=== PATIENT | female | born 1975 | race Caucasian/White ===

== ENCOUNTER 2017-05-10 23:12 | Emergency (ER) | payer BC ==
[2017-05-10 23:20] VITALS: BMI 32.5
[2017-05-10] MEDS ORDERED: ASPIRIN ONE (23:25)
[2017-05-10] MEDS ORDERED: NITROSTAT SL PRN (23:25)
[2017-05-10] MEDS ORDERED: ASPIRIN PO ONE (23:26)
--- NOTE | 2017-05-10 23:34 | DR.GENAD ---
HPI - PCP Primary Care Physician: ASHWIN - HPI Comment HPI Comment: PATIENT DENIES COUGH, CONGESTION, FEVER OR DYSURIA. CHOLESTEROL DONE RECENTLY AND WAS NORMAL. CHEST PAIN WAS GETTING WORSE WHEN SHE CAME TO ED. - Complaint/Symptoms Chief Complaint Doctors Comments: CHEST PAIN THAT STARTED TONIGHT. BP WAS ELEVATED, PATIENT TOOK CLONIDINE. Chief Complaint:: PT STATES" MY BLOOD PRESSURE WAS UP AND I TOOK A CLONIDINE AND THEN LATER I FELT LIKE MY CHEST WAS BURNING TO BAD SO I CAME HERE" - Nurses notes reviewed Nurses Notes Review: Yes - Source History Provided: Patient - Mode of Arrival Mode of Arrival: Ambulatory - Timing Onset of Chief Complaint: 05/10/17 Came on: Suddenly - Duration Duration: Constant Duration: Hours - Severity Severity: Moderate PMH - PMH Past Medical History: Yes Past Medical History: Depression, Hypertension Past Surgical History: Yes Surgical History: Cholecystectomy - Family History History of Family Medical Conditions: Yes Family Medical History: Cancer, Hypertension - Social History Does any household member use tobacco: No Alcohol Use: None Do you use any recreational Drugs:: No Lives With: Family Lives Where: Home - infectious screening In the last 2 months have you had wt loss of >10#?: NO Have you had fever, night sweats or hemotysis?: No Have you traveled outside the country in the last 6 months?: No Isolation: Standard ROS - Review of Systems Constitutional: Weakness, Fatigue. negative: Chills, Fever Eyes: No Symptoms Reported. negative: Eye Pain, Discharge ENTM: No Symptoms Reported. negative: Ear Pain, Nose Discharge, Nose Congestion , Throat Pain Respiratoy: Short of Breath. negative: Productive Cough, Non-Productive Cough, Wheezing, Hemoptysis Cardiovascular: Chest Pain (TIGHTNESS). negative: Edema Gastrointestinal/Abdominal: No Symptoms Reported. negative: Abdominal Pain, Constipation, Diarrhea, Nausea, Vomiting Genitourinary: No Symptoms Reported. negative: Dysuria, Frequency, Hematuria Neurological: Headache, Weakness, Dizziness Musculoskeletal: Muscle Pain Integumentary: No Symptoms Reported Hematologic/Lymphatic: No Symptoms Reported Endocrine: No Symptoms Reported All Other Systems: Reviewed and Negative PE - Vital Signs Vitals: Temperature 97.5 F Pulse Rate [Right Brachial] 61 Pulse Rate 66 Respiratory Rate 16 Blood Pressure [Left Arm] 138/71 Blood Pressure 173/110 O2 Sat by Pulse Oximetry 100 - General Limitations: No Limitations General Appearance: Alert - Head Head Exam: Normal Inspection - Eyes Eye exam: Normal Appearance - ENT ENT Exam: Normal External Ear Exam External Ear Exam: Normal External Inspection TM/Canal Exam: Bilateral Normal Nose Exam: Normal Nose Exam Mouth Exam: Normal Inspection Throat Exam: Normal Inspection - Neck Neck Exam: Trachea Midline - Chest Chest Inspection: Symmetric Chest Wall Rise - Respiratory Respiratory Exam: Normal Lung Sounds Bilat Respiratory Exam: Bilateral Clear to Auscultation - Cardiovascular Cardiovascular Exam: Regular Rate, Normal Rhythm, Normal Heart Sounds - Abdominal Exam Abdominal Exam: Normal Bowel Sounds, Soft. negative: Tenderness - Extremities Extremities Exam: Normal Inspection - Back Back Exam: Normal Inspection - Neurologic Neurological Exam: Alert, Oriented X3 - Psychiatric Psychiatric Exam: Normal Affect, Normal Mood - Skin Skin Exam: Normal Color [facility] - Additional Information Additional Information Obtained From: Old Records - Differential Diagnosis Differential Diagnosis: CHEST PAIN, CHEST TIGHTNESS, [place], PNEUMONIA, PUD, Course - Treatment Treatment: SEE ORDERS. ASA, NTG AND PEPCID IN ED. PAIN IMPROVED. - Education/Counseling Education/Counseling: Patient, Family, Education Educated On: Treatment, Diagnosis, Needs for Follow Up ROR - Labs Reviewed Laboratory Results Reviewed?: Yes Result Diagrams: 05/10/17 23:30 05/10/17 23:30 Laboratory: WBC 10.8 X10^3/uL (3.6-10.0) H 05/10/17 23:30 RBC 4.60 X10^6/uL (3.5-5.4) 05/10/17 23:30 Hgb 14.0 g/dL (12.0-16.0) 05/10/17 23:30 Hct 39.7 % (36.0-47.0) 05/10/17 23:30 MCV 86.3 fL (80.0-100.0) 05/10/17 23:30 MCH 30.5 pg (27.0-34.0) 05/10/17 23:30 MCHC 35.3 g/dL (33.0-35.0) H 05/10/17 23:30 RDW 13.4 % (11.6-16.5) 05/10/17 23:30 Plt Count 279 X10^3/uL (150.0-450.0) 05/10/17 23:30 MPV 8.9 fL (7.4-11.0) 05/10/17 23: Neut % 62.1 % (42.0-75.0) 05/10/17: Lymph % 29.8 % (21.0-51.0) 05/10/17 23: [place] % 5.7 % (0.0-13.0) 05/10/17 23: Eos % 1.5 % (0.9-2.9) 05/10/17 23: Baso % 0.9 % (0.2-1.0) 05/10/17 23: Neut # 6.7 x10^3/uL (2.2-4.8) H 05/10/17: Lymph # 3.2 X10^3/uL (1.3-2.9) H 05/10/17 23:30 [place] # 0.6 x10^3/uL (0.3-0.8) 05/10/17 23: Eos # 0.2 x10^3/uL (0.0-0.2) 05/10/17: Baso # 0.1 X10^3/uL (0.0-0.1) 05/10/17 23: Absolute Nucleated RBC 0.0 /100WBC 05/10/17 23:30 D-Dimer 126 ng/mL (0-400) 05/10/17 23:30 Sodium 138 mmol/L (136-145) 05/10/17 23:30 Corrected Sodium 139 mmol/L (136-145) 05/10/17 23:30 Potassium 3.5 mmol/L (3.5-5.1) 05/10/17 23: Chloride 103 mmol/L (98-107) 05/10/17 23:30 Carbon Dioxide 27.2 mmol/L (21-32) 05/10/17 23:30 BUN 15 mg/dL (7-18) 05/10/17 23:30 Creatinine 1.04 mg/dL (0.55-1.02) H 05/10/17 23:30 Est GFR (MDRD) Af Amer > 60 (>60) 05/10/17 23:30 Est GFR (MDRD) Non-Af > 60 (>60) 05/10/17 23:30 Glucose 140 mg/dL (65-99) H 05/10/17 23:30 Calcium 8.6 mg/dL (8.5-10.1) 05/10/17 23:30 Corrected Calcium TNP 05/10/17 23:30 Total Bilirubin 0.30 mg/dL (0.2-1.0) 05/10/17 23:30 AST 14 Units/L (15-37) L 05/10/17 23:30 ALT 24 Units/L (12-78) 05/10/17 23:30 Alkaline Phosphatase 77 Units/L (46-116) 05/10/17 23:30 Creatine Kinase 71 Units/L (26-192) 05/10/17 23:30 CK-MB (CK-2) < 1.0 ng/mL (0-4.0) 05/10/17 23:30 CK/CKMB % Calc 1.4 % (<4) 05/10/17 23:30 Troponin I < 0.02 ng/mL (0-1.5) 05/10/17 23:30 Total Protein 7.3 g/dL (6.4-8.2) 05/10/17 23:30 Albumin 3.6 g/dL (3.4-5.0) 05/10/17 23:30 Globulin 3.7 g/dL (2.5-4.5) 05/10/17 23:30 Albumin/Globulin Ratio 1.0 Ratio (1.1-2.1) L 05/10/17 23:30 Amylase 63 Units/L (25-115) 05/10/17 23:30 Lipase 130 Units/L (73-393) 05/10/17 23:30 H. pylori IgG Antibody Negative (NEGATIVE) 05/10/17 23:30 - XRAY XRAY Interpreted by: Radiologist XRAY Findings: REPORT DISCUSS WITH PATIENT. - EKG Rhythm: NSR (EKG NOTED.) - Diagnosis Discharge Problem: Chest pain Qualifiers: Chest pain type: precordial pain Qualified Code(s): R07.2 - Precordial pain - Discharge Plan Condition: Stable - Follow ups/Referrals Follow ups/Referrals: Osito Guevara [Primary Care Provider] - 05/11/17 - Instructions Instructions: Chest Pain Observation Additional Instructions: RETURN TO ED IF WORSE.
[2017-05-10] MEDS ORDERED: PEPCID 20 MG IV PREMIX* 20 MG/50 ML BAG IV ONE ×2 (23:37→23:44)
[2017-05-10 23:44] LABS: BASOPHILS # (AUTO) 0.1 X10^3/uL (0.0-0.1); BASOPHILS % (AUTO) 0.9 % (0.2-1.0); EOSINOPHILS # (AUTO) 0.2 x10^3/uL (0.0-0.2); EOSINOPHILS % (AUTO) 1.5 % (0.9-2.9); HEMATOCRIT 39.7 % (36.0-47.0); LYMPHOCYTES # (AUTO) 3.2 X10^3/uL (1.3-2.9); LYMPHOCYTES % (AUTO) 29.8 % (21.0-51.0); MEAN CORPUSCULAR HEMOGLOBIN 30.5 pg (27.0-34.0); MEAN CORPUSCULAR HGB CONC 35.3 g/dL (33.0-35.0); MEAN CORPUSCULAR VOLUME 86.3 fL (80.0-100.0); MEAN PLATELET VOLUME 8.9 fL (7.4-11.0); MONOCYTES # (AUTO) 0.6 x10^3/uL (0.3-0.8); MONOCYTES % (AUTO) 5.7 % (0.0-13.0); NEUTROPHILS # (AUTO) 6.7 x10^3/uL (2.2-4.8); NEUTROPHILS % (AUTO) 62.1 % (42.0-75.0); PLATELET COUNT 279 X10^3/uL (150.0-450.0); RED CELL DISTRIBUTION WIDTH 13.4 % (11.6-16.5); WHITE BLOOD COUNT 10.8 X10^3/uL (3.6-10.0)
[2017-05-10 23:49] LABS: AMYLASE 63 Units/L (25-115); LIPASE 130 Units/L (73-393)
--- NOTE | 2017-05-10 23:54 | RAD ---
AP Chest Indication: Chest pain Comparison: None available Findings: The trachea is midline. The cardiac silhouette is unremarkable. The lungs are clear without focal i nfiltrate or effusion. The bony thorax is unremarkable. IMPRESSION: 1. No acute cardiopulmonary abnormality. Reported By:
[2017-05-11] LABS: BLOOD UREA NITROGEN 15 mg/dL (7-18); CALCIUM 8.6 mg/dL (8.5-10.1); CARBON DIOXIDE 27.2 mmol/L (21-32); CHLORIDE 103 mmol/L (98-107); COR NA(FOR HYPERGLY) 139 mmol/L (136-145); CREATININE 1.04 mg/dL (0.55-1.02); GLUCOSE 140 mg/dL (65-99); SODIUM 138 mmol/L (136-145); TROPONIN I < 0.02 ng/mL (0-1.5); eGFR BLACK RACES > 60 (>60); eGFR NON BLACK RACES > 60 (>60)
[2017-05-11 00:04] LABS: ALANINE AMINOTRANSFERASE 24 Units/L (12-78); ALBUMIN 3.6 g/dL (3.4-5.0); ALKALINE PHOSPHATASE 77 Units/L (46-116); ASPARTATE AMINO TRANSFERASE 14 Units/L (15-37); CKMB % 1.4 % (<4); CREATINE KINASE 71 Units/L (26-192); CREATINE KINASE MB < 1.0 ng/mL (0-4.0); TOTAL PROTEIN 7.3 g/dL (6.4-8.2)
[2017-05-11 00:15] LABS: D DIMER 126 ng/mL (0-400)
[2017-05-11 00:54] VITALS: BP 138/71
== END 2017-05-11 01:05 | disposition home or self-care (01) ==
LOC: ER 23:12
DX: R07.2 Precordial pain (principal)
CPT/HCPCS: 36415; 71010; 80053; 82150; 82550; 82553; 83690; 84484; 85025; 85378; 86677; 93005; 93010; 96365; 96374; 99283; A4222; S0028